=== PATIENT | male | born 1945 | race Caucasian/White ===

== ENCOUNTER → 2023-07-07 11:55 | Outpatient (REF) | payer MEDICARE, BC, SELFPAY ==
[2023-07-07 12:46] LABS: % Basophils 0.8 % (0-2); % Eosinophils 3.5 % (0-6); % Immature Granulocytes 0.2 % (0-0.5); % Lymphocytes 22.1 % (20.5-51.1); % Neutrophils 64.4 % (42.2-75.2); Absolute Basophils 0.1 10^3/uL (0-0.2); Absolute Eosinophils 0.2 10^3/uL (0-0.7); Absolute Lymphocytes 1.3 10^3/uL (1.2-3.4); Absolute Monocytes 0.5 10^3/uL (0.1-0.6); Absolute Neutrophils 3.8 10^3/uL (1.4-6.5); Hematocrit 41.9 % (39.0-52.0); Hemoglobin 13.9 g/dL (13.0-18.0); Mean Corp Hgb Conc. 33.2 g/dL (33.0-37.0); Mean Corpuscular Hgb 28.8 pg (27.0-31.0); Mean Corpuscular Volume 86.9 fL (80.0-94.0); Mean Platelet Volume 9.7 fL (7.4-10.4); Nucleated Red Blood Cells % 0 % (-); Platelet Count 182 10^3/uL (130-400); Red Blood Cell Count 4.82 10^6/uL (4.70-6.10); Red Cell Dist. Width 16.5 % (11.5-14.5)
[2023-07-07 13:41] LABS: ALT (SGPT) 25 U/L (0-50); AST (SGOT) 29 U/L (17-59); Albumin 4.6 g/dl (3.5-5.0); Alkaline Phosphatase 81 U/L (38-126); Blood Urea Nitrogen 21 mg/dl (9-20); Calcium 9.5 mg/dl (8.4-10.2); Carbon Dioxide 27 mmol/L (22-30); Chloride 102 mmol/L (98-107); Glucose 103 mg/dl (70-99); HDL Cholesterol 29 mg/dl; LDL Cholesterol, Calculated 28 mg/dl; Potassium 4.3 mmol/L (3.5-5.1); Sodium 135 mmol/L (135-145); Total Bilirubin 1.2 mg/dl (0.2-1.3); Total Cholesterol 67 mg/dl (50-199); Total Protein 7.2 g/dl (6.3-8.2); Triglyceride 50 mg/dl (10-149); Very Low Density Lipoprotein 10 mg/dl (0-30); eGFR > 60.00
[2023-07-07 13:52] LABS: Free T4 1.22 ng/dl (0.78-2.19)
[2023-07-07 13:56] LABS: Glycohemoglobin (HgbA1c) 6.3 % (4.0-5.6)
[2023-07-07 14:05] LABS: TSH 3.64 uIU/ml (0.47-4.68)
== END ==
LOC: REG 11:55
PROVIDERS: ATTENDING PHYSICIAN Internal Medicine Cardiovascular Disease; FAMILY PHYSICIAN Family Medicine
DX: E11.40 Type 2 diabetes mellitus with diabetic neuropathy, unspecified (principal); E78.49 Other hyperlipidemia; I10 Essential (primary) hypertension
CPT/HCPCS: 36415; 80053; 80061; 83036; 84439; 84443; 85025

== ENCOUNTER → 2023-08-05 12:40 | Outpatient (REF) | payer MEDICARE, BC, SELFPAY | LOC: DHCBC HW 12:40 | PROVIDERS: ATTENDING PHYSICIAN Internal Medicine Cardiovascular Disease; FAMILY PHYSICIAN Family Medicine | DX: I35.0 Nonrheumatic aortic (valve) stenosis (principal) | CPT/HCPCS: 93306 ==

== ENCOUNTER → 2023-11-09 15:16 | Outpatient (REF) | payer MEDICARE, BC, SELFPAY ==
[2023-11-09 16:39] LABS: Urine Albumin Negative (Neg - Trace); Urine Bilirubin Negative (Negative); Urine Character Clear (Clear); Urine Color Yellow; Urine Glucose 3+ (Negative); Urine Ketone Negative (Negative); Urine Leukocyte Negative (Negative); Urine Nitrite Negative (Negative); Urine Occult Blood Negative (Negative); Urine Specific Gravity 1.015 (<1.030); Urine Urobilinogen Negative (Neg - 1+)
[2023-11-09 17:32] LABS: ALT (SGPT) 40 U/L (0-50); AST (SGOT) 34 U/L (17-59); Albumin 4.5 g/dl (3.5-5.0); Alkaline Phosphatase 61 U/L (38-126); Blood Urea Nitrogen 28 mg/dl (9-20); Calcium 9.4 mg/dl (8.4-10.2); Carbon Dioxide 22 mmol/L (22-30); Glucose 118 mg/dl (70-99); HDL Cholesterol 35 mg/dl; LDL Cholesterol, Calculated 114 mg/dl; Sodium 139 mmol/L (135-145); Total Bilirubin 1.1 mg/dl (0.2-1.3); Total Cholesterol 165 mg/dl (50-199); Triglyceride 81 mg/dl (10-149); Very Low Density Lipoprotein 16 mg/dl (0-30); eGFR > 60.00
[2023-11-09 17:38] LABS: Chloride 107 mmol/L (98-107); Potassium 4.7 mmol/L (3.5-5.1)
[2023-11-09 19:24] LABS: Microalbumin, Random Urine < 0.6 mg/dl (0.6-1.7)
[2023-11-10 11:12] LABS: Glycohemoglobin (HgbA1c) 6.7 % (4.0-5.6)
== END ==
LOC: REG 15:16
PROVIDERS: ATTENDING PHYSICIAN Internal Medicine Cardiovascular Disease; FAMILY PHYSICIAN Internal Medicine Geriatric Medicine
DX: E11.9 Type 2 diabetes mellitus without complications (principal); Z76.89 Persons encountering health services in other specified circumstances; I10 Essential (primary) hypertension; I44.7 Left bundle-branch block, unspecified; Z79.01 Long term (current) use of anticoagulants; I48.0 Paroxysmal atrial fibrillation; I35.0 Nonrheumatic aortic (valve) stenosis; E78.2 Mixed hyperlipidemia; Z13.31 Encounter for screening for depression; I48.3 Typical atrial flutter
CPT/HCPCS: 36415; 80053; 80061; 81003; 82043; 82570; 83036

== ENCOUNTER → 2024-05-31 08:50 | Outpatient (REF) | payer MEDICARE, BC, SELFPAY ==
[2024-05-31 10:11] LABS: ALT (SGPT) 23 U/L (0-50); AST (SGOT) 21 U/L (17-59); Albumin 4.3 g/dl (3.5-5.0); Alkaline Phosphatase 56 U/L (38-126); Blood Urea Nitrogen 19 mg/dl (9-20); Calcium 9.3 mg/dl (8.4-10.2); Carbon Dioxide 25 mmol/L (22-30); Chloride 103 mmol/L (98-107); Glucose 103 mg/dl (70-99); HDL Cholesterol 31 mg/dl; LDL Cholesterol, Calculated 44 mg/dl; Potassium 3.8 mmol/L (3.5-5.1); Sodium 138 mmol/L (135-145); Total Bilirubin 1.4 mg/dl (0.2-1.3); Total Cholesterol 88 mg/dl (50-199); Total Protein 6.5 g/dl (6.3-8.2); Triglyceride 69 mg/dl (10-149); Very Low Density Lipoprotein 13 mg/dl (0-30); eGFR > 60.00
[2024-05-31 10:25] LABS: Glycohemoglobin (HgbA1c) 6.7 % (4.0-5.6)
== END ==
LOC: REG 08:50
PROVIDERS: ATTENDING PHYSICIAN Student in an Organized Health Care Education/Training Program; FAMILY PHYSICIAN Internal Medicine Geriatric Medicine; OTHER PHYSICIAN Internal Medicine Cardiovascular Disease
DX: E11.40 Type 2 diabetes mellitus with diabetic neuropathy, unspecified (principal); E78.6 Lipoprotein deficiency; E78.2 Mixed hyperlipidemia; E11.9 Type 2 diabetes mellitus without complications; R79.9 Abnormal finding of blood chemistry, unspecified
CPT/HCPCS: 36415; 80053; 80061; 83036

== ENCOUNTER → 2024-06-27 12:42 | Outpatient (REF) | payer BC, SELFPAY | LOC: RCS 12:42 | PROVIDERS: ATTENDING PHYSICIAN Internal Medicine Cardiovascular Disease; FAMILY PHYSICIAN Internal Medicine Geriatric Medicine | DX: I35.0 Nonrheumatic aortic (valve) stenosis (principal) | CPT/HCPCS: 93306 ==

== ENCOUNTER → 2024-10-28 12:16 | Outpatient (REF) | payer BC, SELFPAY ==
[2024-10-28 13:15] LABS: Hematocrit 44.2 % (39.0-52.0); Hemoglobin 15.1 g/dL (13.0-18.0); Mean Corp Hgb Conc. 34.2 g/dL (33.0-37.0); Mean Corpuscular Volume 91.3 fL (80.0-94.0); Nucleated Red Blood Cells % 0 % (-); Platelet Count 161 10^3/uL (130-400); Red Cell Dist. Width 14.6 % (11.5-14.5)
[2024-10-28 13:40] LABS: ALT (SGPT) 25 U/L (0-50); AST (SGOT) 24 U/L (17-59); Albumin 4.5 g/dl (3.5-5.0); Alkaline Phosphatase 39 U/L (38-126); Blood Urea Nitrogen 20 mg/dl (9-20); Calcium 10.1 mg/dl (8.4-10.2); Carbon Dioxide 24 mmol/L (22-30); Chloride 106 mmol/L (98-107); Glucose 73 mg/dl (70-99); HDL Cholesterol 32 mg/dl; LDL Cholesterol, Calculated 35 mg/dl; Potassium 4.8 mmol/L (3.5-5.1); Sodium 137 mmol/L (135-145); Total Protein 7.0 g/dl (6.3-8.2); Very Low Density Lipoprotein 12 mg/dl (0-30); eGFR > 60.00
[2024-10-28 14:10] LABS: TSH 2.46 uIU/ml (0.47-4.68)
[2024-10-28 14:14] LABS: Glycohemoglobin (HgbA1c) 5.0 % (4.0-5.6)
[2024-10-28 14:29] LABS: Urine Character Clear (Clear)
[2024-10-28 14:50] LABS: Microalb - Urine Creatinine 46.500 mg/dl
[2024-10-28 15:19] LABS: Microalbumin, Random Urine < 0.6 mg/dl (0.6-1.7)
== END ==
LOC: REG 12:16
PROVIDERS: ATTENDING PHYSICIAN Family Medicine; REFERRING PHYSICIAN Internal Medicine Cardiovascular Disease
DX: E11.40 Type 2 diabetes mellitus with diabetic neuropathy, unspecified (principal); E78.49 Other hyperlipidemia; R53.83 Other fatigue
CPT/HCPCS: 36415; 80053; 80061; 81003; 82043; 82570; 83036; 84439; 84443; 85025